=== PATIENT | female | born 1955 | race Caucasian/White ===

== ENCOUNTER 2016-12-10 15:54 | Emergency (ER) | payer OTHER ==
[2016-12-10 16:31] VITALS: BP 82/64
[2016-12-10] MEDS ORDERED: Sodium Chloride 0.9% 10 ML Syringe FLUSH PRN (16:42)
[2016-12-10] MEDS ORDERED: fentaNYL 100 MCG/2 ML SDV IVPUSH ONE (16:42)
--- NOTE | 2016-12-10 16:47 | EDM.PDOC ---
ED HPI GENERAL MEDICAL PROBLEM - General Chief Complaint: Upper Extremity Injury/Pain Stated Complaint: BROKEN ARM Time Seen by Provider: 12/10/16 16:38 Source of Information: Reports: Patient History Limitations: Reports: No Limitations - History of Present Illness INITIAL COMMENTS - FREE TEXT/NARRATIVE: Patient is a 61-year-old female who presents to the ED complaining of right wrist pain. Patient states while attempting to lift a shed with a pry bar on blocks. Patient slipped off the bar while standing on it falling and landing on her right wrist. Patient did attempt to catch her self. SHe suffered immediate pain to the right wrist. Unable to move it secondary to discomfort. Denies any loss consciousness, neck/back pain, or pain to the remainder of the affected extremity. She has a history of fractures to the affected wrist many years ago. States their is some tingling to the tips of her fingers. She is able to move all her fingers. Right Wrist Pain Score (Numeric/FACES): 8 - Related Data Allergies Allergy/AdvReac Type Severity Reaction Status Date / Time cephalexin [From Keflex] Allergy Hives Verified 12/10/16 16:32 codeine Allergy Hives Verified 12/10/16 16:32 latex Allergy Blisters Verified 12/10/16 16:32 Penicillins Allergy Hives Verified 12/10/16 16:32 Home Meds: Home Meds Acetaminophen/HYDROcodone [[place] 325-5 MG] 1 tab PO Q6H PRN #12 tablet 12/10/16 [Rx] Doxycycline [Vibramycin] 250 mg PO BID 12/10/16 [History] Review of Systems - Review of Systems Review Of Systems: ROS reveals no pertinent complaints other than HPI. ED EXAM, GENERAL - Physical Exam Exam: See Below Exam Limited By: No Limitations General Appearance: Alert, WD/WN, No Apparent Distress Ears: Hearing Grossly Normal Nose: Normal Inspection Throat/Mouth: Normal Voice, No Airway Compromise Head: Atraumatic, Normocephalic Neck: Normal Inspection, Supple, Non-Tender, Full Range of Motion Respiratory/Chest: No Respiratory Distress, Lungs Clear, Normal Breath Sounds, No Accessory Muscle Use, Chest Non-Tender Cardiovascular: Normal Peripheral Pulses, Regular Rate, Rhythm Peripheral Pulses: 2+: Radial (R) Extremities: Other (deformity noted to the right wrist with mild swelling present. Pain with palpation along the radial aspect of the wrist and dorsal aspect of the hand. Limited range of motion to her fingers secondary to pain. No sensory deficits distally. No pain with palpation of the right elbow, upper arm, shoulder, or clavicle.) Neurological: Alert, Oriented, CN II-XII Intact, No Motor/Sensory Deficits Psychiatric: Normal Affect, Normal Mood Skin Exam: Warm, Dry, Intact, Normal Color, No Rash ED TRAUMA EXTREMITY PROCEDURES - Splinting Right Upper Extremity Splint Site: right forearm/thumb Pre-Procedure NV Status: Normal Post-Procedure NV Status: Normal Splint Material: Fiberglass Splint Design: Thumb Spica, Gutter Applied & Form Fitted By: Provider, Nurse Provider Post-Splint Application NV Check: NV Status Normal, Good Position Complications: No Course - Vital Signs Last Recorded V/S: Last Vital Signs Temp 96.6 F 12/10/16 16:28 Pulse 74 12/10/16 16:28 Resp 16 12/10/16 16:28 BP 82/64 L 12/10/16 16:28 Pulse Ox 98 12/10/16 16:28 - Orders/Labs/Meds Orders: Active Orders 24 hr Category Date Time Status Peripheral IV Care [RC] . DIRECTED Care 12/10/16 16:42 Active Hand 2V Rt [CR] Stat Exams 12/10/16 16:43 Taken Wrist Comp Min 3V Rt [CR] Stat Exams 12/10/16 16:43 Taken Peripheral IV Insertion Adult [OM.PC] Stat Oth 12/10/16 16:42 Ordered Meds: Medications Discontinued Medications Generic Name Dose Route Start Last Admin Trade Name Freq PRN Reason Stop Dose Admin Fentanyl 75 mcg 12/10/16 16:42 12/10/16 17:19 Sublimaze IVPUSH 12/10/16 16:43 75 mcg ONETIME ONE Administration Sodium Chloride 10 ml 12/10/16 16:42 12/10/16 17:25 Saline Flush FLUSH 10 ml ASDIRECTED PRN Administration Keep Vein Open - Re-Assessments/Exams Free Text/Narrative Re-Assessment/Exam: Vitals signs assessed. Patient has normally low BP. Peripheral IV established with fentanyl 75 g IVP. X-ray of the right wrist and hand will be obtained. 12/10/16 17:40 Patient has a comminuted fracture to the distal radius.It is impacted with minimal displacement. I have contacted Dr. Rios to review x-ray. Dr. Rios Orthopedic Surgeon licensed bondsman has reviewed xray of the wrist. Suggested splint and have the patient be evaluated in the clinic in 1 wk. Splint applied. Utilized ulnar gutter splint and thumb spica to catch the thumb. Patient has pain with palpation and movement of the thumb thus wanted to ensure this was immobilized. This was completed with no complications. Patient discharged home with instructions as documented. Departure - Departure Time of Disposition: 18:58 Disposition: Home, Self-Care 01 Condition: Good Clinical Impression: Fracture of radius Qualifiers: Encounter type: initial encounter Radius location: distal Fracture type: closed Fracture morphology: other fracture Laterality: right Qualified Code(s): S52.591A - Other fractures of lower end of right radius, initial encounter for closed fracture Wrist fracture, right Qualifiers: Encounter type: initial encounter Fracture type: closed Qualified Code(s): S62.101A - Fracture of unspecified carpal bone, right wrist, initial encounter for closed fracture - Discharge Information Prescriptions: Acetaminophen/HYDROcodone [[place] 325-5 MG] 1 tab PO Q6H PRN #12 tablet PRN Reason: Pain (Severe 7-10) Instructions: Wrist Fracture With Rehab-SportsMed Referrals: Jose Hitchcock MD [Primary Care Provider] - Khai Rios MD [Physician] - Forms: ED Department Discharge Additional Instructions: Call and make an appt with Dr. Rios Orthopedic Surgeon tomorrow to be evaluated in one wk. Elevate when able to reduce swelling and pain. Apply ice to the affected area 4-6 times daily, 20 minutes in duration, do not place ice directly on the skin. Take Tylenol and ibuprofen in alternating fashion for pain. For severe pain take [place] one tab every 6 hours as needed. Do not take Tylenol and [place] together. No driving this evening since receiving a sedative medication. No driving while taking the [place]. Return to ED for any new or worsening symptoms. - My Orders Last 24 Hours: My Active Orders 12/10/16 16:42 Peripheral IV Care [RC] . DIRECTED Peripheral IV Insertion Adult [OM.PC] Stat 12/10/16 16:43 Hand 2V Rt [CR] Stat Wrist Comp Min 3V Rt [CR] Stat - Assessment/Plan Last 24 Hours: My Active Orders 12/10/16 16:42 Peripheral IV Care [RC] . DIRECTED Peripheral IV Insertion Adult [OM.PC] Stat 12/10/16 16:43 Hand 2V Rt [CR] Stat Wrist Comp Min 3V Rt [CR] Stat
--- NOTE | 2016-12-11 07:32 | CR ---
Right wrist: Three views of the right wrist were obtained. Distal radial fracture is seen with transverse fracture line through the metaphysis. Fracture also noted to extend into the radial styloid process. Additional fracture line is seen to extend into the articular margin along the ulnar side of the radius. Mild impaction is seen. Distal ulna is intact. No additional fracture is seen. Soft tissue swelling is present. Impression: 1. Impacted and slightly comminuted distal right radial fracture with articular extension. 2. Soft tissue swelling. Diagnostic code #3
--- NOTE | 2016-12-11 07:32 | CR ---
Right hand: Two views of the right hand were obtained. Comparison: No prior hand study. Distal radial fracture is again noted. No additional fracture or other abnormality is identified. Impression: 1. Distal radial fracture is again noted. 2. Nothing acute is appreciated on two-view right hand study. Diagnostic code #3
== END 2016-12-10 19:15 | disposition home or self-care (01) ==
LOC: JD.ED 15:54
DX: S52.591A Other fractures of lower end of right radius, initial encounter for closed fracture (principal); S62.101A Fracture of unspecified carpal bone, right wrist, initial encounter for closed fracture; Z88.1 Allergy status to other antibiotic agents; Z88.5 Allergy status to narcotic agent; Z91.040 Latex allergy status; Z88.0 Allergy status to penicillin; W17.89XA Other fall from one level to another, initial encounter
CPT/HCPCS: 29125; 73110; 73120; 96374; 99284; J3010; J7050; 99283-25

== ENCOUNTER 2017-05-16 10:05 | Emergency (ER) | payer OTHER ==
[2017-05-16 10:15] VITALS: BP 139/98
--- NOTE | 2017-05-16 11:11 | EDM.PDOC ---
<Rosamaria Miller - Last Filed: 05/16/17 10:56> ED HPI GENERAL MEDICAL PROBLEM - General Chief Complaint: Chest Pain Stated Complaint: CHEST PAIN/L ARM SWELLING Time Seen by Provider: 05/16/17 10:45 - History of Present Illness INITIAL COMMENTS - FREE TEXT/NARRATIVE: Patient is a 62 female here today for left arm discomfort and swelling. About 8: 30 am this morning while she was at work, she had a sudden onset of nausea, shortness of breath, cold sweating, and left arm discomfort. She says she did not feel any pain in her arm, but had a "funny feeling" from her left hand up into her armpit and shoulder, and then she noticed her left arm and hard were swollen, so much that her rings were tight. She denies vomiting, diarrhea, dizzyness, or chest pain. She has no numbness or tingling into her arm or hand. She denies previous episodes. She has a history of anxiety and she states she takes Prozac occasionally "to take the edge off" once about every 3 days. She has no other chronic health conditions and takes no other medications. Chest Pain Score (Numeric/FACES): 3 - Related Data Allergies Allergy/AdvReac Type Severity Reaction Status Date / Time cephalexin [From Keflex] Allergy Hives Verified 05/16/17 10:14 codeine Allergy Hives Verified 05/16/17 10:14 latex Allergy Blisters Verified 05/16/17 10:14 Penicillins Allergy Hives Verified 05/16/17 10:14 Home Meds: Home Meds . 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 Musculoskeletal Surgical History: Reports: Other (See Below) Other Musculoskeletal Surgeries/Procedures:: back surgery Social & Family History - Tobacco Use Smoking Status *Q: Former Smoker Used Tobacco, but Quit: Yes Month Tobacco Last Used: 1 yr ago - Caffeine Use Caffeine Use: Reports: Coffee - Recreational Drug Use Recreational Drug Use: No ED ROS GENERAL - Review of Systems Constitutional: Reports: Other (sweating during episode) Respiratory: Reports: Shortness of Breath Cardiovascular: Denies: Chest Pain GI/Abdominal: Reports: Nausea. Denies: Diarrhea, Vomiting Musculoskeletal: Reports: Joint Swelling, Other (left arm, hand swelling) Neurological: Reports: Headache. Denies: Dizziness, Numbness, Tingling Psychiatric: Reports: Anxiety ED EXAM, GENERAL - Physical Exam Exam Limited By: No Limitations Throat/Mouth: Normal Inspection Respiratory/Chest: No Respiratory Distress, Lungs Clear, Normal Breath Sounds Cardiovascular: Normal Peripheral Pulses, Regular Rate, Rhythm GI/Abdominal: Normal Bowel Sounds, Soft, Non-Tender, No Distention Extremities: Normal Inspection, Normal Range of Motion, Non-Tender, No Pedal Edema, Normal Capillary Refill. No: Joint Swelling, Limited Range of Motion, Increased Warmth, Pallor, Redness Neurological: Alert, Oriented Psychiatric: Normal Affect, Normal Mood Skin Exam: Dry. No: Warm Course - Vital Signs Last Recorded V/S: Last Vital Signs Temp 36.3 C 05/16/17 10:09 Pulse 77 05/16/17 10:09 Resp 16 05/16/17 10:09 BP 139/98 H 05/16/17 10:09 Pulse Ox 100 05/16/17 10:09 - Orders/Labs/Meds Orders: Active Orders 24 hr Category Date Time Status Cardiac Monitoring [RC] . DIRECTED Care 05/16/17 11:25 Active EKG 12 Lead [EKG Documentation Completion] [RC] STAT Care 05/16/17 10:13 Active Peripheral IV Care [RC] . DIRECTED Care 05/16/17 11:26 Active Chest 1V Frontal [CR] Stat Exams 05/16/17 11:25 Taken Head wo Cont [CT] Stat Exams 05/16/17 13:47 Taken Peripheral IV Insertion Adult [OM.PC] Routine Oth 05/16/17 11:25 Ordered Labs: Laboratory Tests 05/16/17 05/16/17 05/16/17 Range/Units 10:15 10:15 10:15 WBC 5.16 (3.98-10.04) K/mm3 RBC 4.85 (3.98-5.22) M/mm3 Hgb 13.9 (11.2-15.7) gm/L Hct 41.7 (34.1-44.9) % MCV 86.0 (79.4-94.8) fl MCH 28.7 (25.6-32.2) pg MCHC 33.3 (32.2-35.5) g/dl RDW Std Deviation 42.1 (36.4-46.3) fL Plt Count 248 (182-369) K/mm3 MPV 10.2 (9.4-12.3) fl Neut % (Auto) 61.8 (34.0-71.1) % Lymph % (Auto) 27.9 (19.3-51.7) % Stephen[place] % (Auto) 8.5 (4.7-12.5) % Eos % (Auto) 1.2 (0.7-5.8) Baso % (Auto) 0.4 (0.1-1.2) % Neut # (Auto) 3.19 (1.56-6.13) K/mm3 Lymph # (Auto) 1.44 (1.18-3.74) K/mm3 [place] # (Auto) 0.44 H (0.24-0.36) K/mm3 Eos # (Auto) 0.06 (0.04-0.36) K/mm3 Baso # (Auto) 0.02 (0.01-0.08) K/mm3 D-Dimer, Quantitative 0.36 (0.19-0.59) mg/L Sodium 136 (136-145) mEq/L Potassium 3.7 (3.5-5.1) mEq/L Chloride 100 (98-107) mEq/L Carbon Dioxide 25 (21-32) mEq/L Anion Gap 14.7 (5-15) BUN 11 (7-18) mg/dL Creatinine 0.9 (0.55-1.02) mg/dL Est Cr Clr Drug Dosing 63.03 mL/min Estimated GFR (MDRD) > 60 (>60) mL/min BUN/Creatinine Ratio 12.2 L (14-18) Glucose 96 (80-115) mg/dL Calcium 9.3 (8.5-10.1) mg/dL Total Bilirubin 0.6 (0.2-1.0) mg/dL AST 21 (15-37) U/L ALT 28 (14-59) U/L Alkaline Phosphatase 57 (46-116) U/L Troponin I < 0.017 (0.00-0.056) ng/mL Total Protein 7.8 (6.4-8.2) g/dl Albumin 4.2 (3.4-5.0) g/dl Globulin 3.6 gm/dL Albumin/Globulin Ratio 1.2 (1-2) 05/16/17 Range/Units 13:40 WBC (3.98-10.04) K/mm3 RBC (3.98-5.22) M/mm3 Hgb (11.2-15.7) gm/L Hct (34.1-44.9) % MCV (79.4-94.8) fl MCH (25.6-32.2) pg MCHC (32.2-35.5) g/dl RDW Std Deviation (36.4-46.3) fL Plt Count (182-369) K/mm3 MPV (9.4-12.3) fl Neut % (Auto) (34.0-71.1) % Lymph % (Auto) (19.3-51.7) % Stephenson % (Auto) (4.7-12.5) % Eos % (Auto) (0.7-5.8) Baso % (Auto) (0.1-1.2) % Neut # (Auto) (1.56-6.13) K/mm3 Lymph # (Auto) (1.18-3.74) K/mm3 [place] # (Auto) (0.24-0.36) K/mm3 Eos # (Auto) (0.04-0.36) K/mm3 Baso # (Auto) (0.01-0.08) K/mm3 D-Dimer, Quantitative (0.19-0.59) mg/L Sodium (136-145) mEq/L Potassium (3.5-5.1) mEq/L Chloride (98-107) mEq/L Carbon Dioxide (21-32) mEq/L Anion Gap (5-15) BUN (7-18) mg/dL Creatinine (0.55-1.02) mg/dL Est Cr Clr Drug Dosing mL/min Estimated GFR (MDRD) (>60) mL/min BUN/Creatinine Ratio (14-18) Glucose (80-115) mg/dL Calcium (8.5-10.1) mg/dL Total Bilirubin (0.2-1.0) mg/dL AST (15-37) U/L ALT (14-59) U/L Alkaline Phosphatase (46-116) U/L Troponin I < 0.017 (0.00-0.056) ng/mL Total Protein (6.4-8.2) g/dl Albumin (3.4-5.0) g/dl Globulin gm/dL Albumin/Globulin Ratio (1-2) Meds: Medications Discontinued Medications Generic Name Dose Route Start Last Admin Trade Name Freq PRN Reason Stop Dose Admin Ketorolac Tromethamine 30 mg 05/16/17 13:24 Toradol IVPUSH 05/16/17 13:25 ONETIME ONE Ketorolac Tromethamine 30 mg 05/16/17 15:17 05/16/17 15:18 Toradol IVPUSH 05/16/17 15:18 30 mg ONETIME ONE Administration Ketorolac Tromethamine Confirm 05/16/17 15:21 05/16/17 15:31 Toradol Administered 05/16/17 15:22 Not Given Dose 30 mg .ROUTE .STK-MED ONE Ondansetron HCl 4 mg 05/16/17 13:42 05/16/17 13:52 Zofran IVPUSH 05/16/17 13:43 4 mg ONETIME ONE Administration Sodium Chloride 10 ml 05/16/17 11:25 05/16/17 11:33 Saline Flush FLUSH 10 ml ASDIRECTED PRN Administration Keep Vein Open Departure - Departure Disposition: Home, Self-Care 01 Clinical Impression: Headache Instructions: General Headache Without Cause Referrals: Jose Hitchcock MD [Primary Care Provider] - Forms: ED Department Discharge Additional Instructions: go home and rest in a dark quiet room. Make sure are drinking plenty of fluids. Follow-up with primary care provider for recheck of your symptoms next week. please return to the ER if your symptoms change or worsen. - My Orders Last 24 Hours: My Active Orders 05/16/17 11:25 Cardiac Monitoring [RC] . DIRECTED Chest 1V Frontal [CR] Stat Peripheral IV Insertion Adult [OM.PC] Routine 05/16/17 11:26 Peripheral IV Care [RC] . DIRECTED 05/16/17 13:47 Head wo Cont [CT] Stat - Assessment/Plan Last 24 Hours: My Active Orders 05/16/17 11:25 Cardiac Monitoring [RC] . DIRECTED Chest 1V Frontal [CR] Stat Peripheral IV Insertion Adult [OM.PC] Routine 05/16/17 11:26 Peripheral IV Care [RC] . DIRECTED 05/16/17 13:47 Head wo Cont [CT] Stat <Gisell Thacker F - Last Filed: 05/17/17 00:23> EKG INTERPRETATION EKG Date: 05/16/17 Time: 10:15 Rhythm: NSR Rate (Beats/Min): 75 [place]: Normal P-Wave: Present QRS: Normal ST-T: Normal QT: Normal EKG Interpretation Comments: NSR at 75 bpm. Mildly decreased voltage limb leads and precordial leads. Reviewed by myself and Dr. Doyle. Course - Radiology Interpretation Free Text/Narrative:: Chest: Portable view of the chest was obtained. Comparison: Prior chest x-ray of 06/20/13. Heart size and mediastinum are normal. Lungs are clear. Bony structures are grossly intact. Impression: 1. Nothing acute is seen on portable chest x-ray. CT head without contrast impression per [facility]: No acute intracranial abnormality. Departure - Departure Time of Disposition: 15:40 Condition: Fair
[2017-05-16] MEDS ORDERED: Sodium Chloride 0.9% 10 ML Syringe FLUSH PRN (11:25)
[2017-05-16] MEDS ORDERED: Ketorolac 30 MG/ML SDV IVPUSH ONE ×2 (13:24→15:17)
[2017-05-16] MEDS ORDERED: Ondansetron 4 MG/2 ML SDV IVPUSH ONE (13:42)
[2017-05-16] MEDS ORDERED: Ketorolac 30 MG/ML SDV ONE (15:21)
--- NOTE | 2017-05-17 07:35 | CR ---
Chest: Portable view of the chest was obtained. Comparison: Prior chest x-ray of 06/20/13. Heart size and mediastinum are normal. Lungs are clear. Bony structures are grossly intact. Impression: 1. Nothing acute is seen on portable chest x-ray. Diagnostic code #1
--- NOTE | 2017-05-17 07:35 | CT ---
Head CT Technique: Multiple axial sections through the brain were obtained. Intravenous contrast was not utilized. Comparison: No previous intracranial imaging is available. Findings: Ventricles along the basal cisterns and sulci over the convexities are within normal limits for the patient's age. No abnormal parenchymal densities are seen. No evidence of intracranial hemorrhage. No midline shift or mass effect is seen. Mild mucosal thickening seen within the sphenoid and ethmoid sinuses. No acute calvarial abnormality is identified. Impression: 1. Sinus findings most likely pre-existing and chronic. 2. No acute intracranial abnormality is identified. Diagnostic code #2 I agree with preliminary report issued by [facility] ([facility] report finalized on 05/16/17, 3:29 PM Central Time)
== END 2017-05-16 15:50 | disposition home or self-care (01) ==
LOC: JD.ED 10:05
DX: R51 Headache (principal); Z88.1 Allergy status to other antibiotic agents; Z88.5 Allergy status to narcotic agent; Z91.040 Latex allergy status; Z88.0 Allergy status to penicillin; Z87.891 Personal history of nicotine dependence
CPT/HCPCS: 36415; 70450; 71045; 80053; 84484; 85025; 85379; 93005; 96374; 96375; 99285; J1885; J2405; J7050